=== PATIENT | male | born 1975 | race Two or more races ===

== ENCOUNTER 2022-11-24 05:53 | Day surgery (SDC) | payer OTHER | END 2022-11-24 12:35 | disposition home or self-care (01) | LOC: AMB-ENDOS 05:53 → CIR.AMB 14:15 | PROVIDERS: ATTEND Surgery | DX: K57.30 Diverticulosis of large intestine without perforation or abscess without bleeding (principal); K64.8 Other hemorrhoids; Z20.822 Contact with and (suspected) exposure to COVID-19; R93.5 Abnormal findings on diagnostic imaging of other abdominal regions, including retroperitoneum ==